=== PATIENT | female | born 2000 | race African-American/Black ===

== ENCOUNTER 2024-04-19 21:14 | Emergency (ER) | payer SELFPAY ==
[~2024-04-19] VITALS: Ht 167.6 cm; Wt 68.0 kg
[2024-04-19 21:20] VITALS: PULSE 92; RESP 18; TEMP 99.5; O2SAT 100
[2024-04-19] MEDS ORDERED: AMOXICILLIN500 MG PO (21:50)
[2024-04-19] MEDS: DEXAMETHASONE SOD PHOS INJ 4 MG/ML SDV IV ONE (21:50)
[2024-04-19] MEDS: DEXAMETHASONE SOD PHOS 10 MG/1 ML VIAL IV ONE (21:53)
== END 2024-04-19 22:00 | disposition home or self-care (01) ==
LOC: FSED 21:17
DX: R50.9 Fever, unspecified (principal); J02.0 Streptococcal pharyngitis; R51.9 Headache, unspecified; Z11.52 Encounter for screening for COVID-19; F17.210 Nicotine dependence, cigarettes, uncomplicated
CPT/HCPCS: 0223U; 83518; 87400; 99283; J1100 ×2

== ENCOUNTER 2024-04-27 10:10 | Emergency (ER) | payer SELFPAY ==
[~2024-04-27] VITALS: Ht 167.6 cm; Wt 69.1 kg
[~2024-04-27 10:10] MED LIST: AMOXICILLIN500 MG PO
[2024-04-27 10:23] VITALS: PULSE 87; RESP 16; TEMP 97.6; O2SAT 99
[2024-04-27] MEDS: TETANUS/DIPHTHERIA TOX ADULT 0.5 ML SYR IM ONE (10:54)
== END 2024-04-27 10:55 | disposition home or self-care (01) ==
LOC: FSED 10:22
DX: S80.872A Other superficial bite, left lower leg, initial encounter (principal); W54.0XXA Bitten by dog, initial encounter; Y92.89 Other specified places as the place of occurrence of the external cause
CPT/HCPCS: 90471; 90714; 96372; 99283